=== PATIENT | female | born 1940 | race Caucasian/White ===

== ENCOUNTER 2018-02-09 14:33 | Emergency (ER) | payer MEDICARE, OTHER ==
[~2018-02-09] VITALS: Ht 157.5 cm; Wt 66.0 kg
[~2018-02-09 14:33] MED LIST: ATEN25TA PO; DEXI60CA PO; DONE10TA7 PO; SIMV40TA PO
[2018-02-09 14:44] VITALS: BP 135/63; PULSE 68; RESP 18; TEMP 97.4; O2SAT 95
[2018-02-09] MEDS ORDERED: MEMA1TAB2 PO (15:38)
[2018-02-09] MEDS ORDERED: ACETAMINOPHEN/HYDROcodone 325 MG/5 MG TAB PO ONE (16:00)
--- NOTE | 2018-02-09 16:30 | PD ---
HPI Chief Complaint: Musculoskeletal Complaint Time Seen by Provider: 15:38 Travel History International Travel<30 days: No Contact w/Intl Traveler<30days: No Traveled to known affect area: No History of Present Illness HPI 77-year-old female presents to the emergency room for evaluation of right shoulder pain after mechanical trip and fall just prior to arrival. Patient was in her garage when she slipped on something on the floor and fell to the right. She believes she struck her shoulder against a wall. She states she never actually fell to the floor. She adamantly denies hitting her head or loss of consciousness. She denies any other pain. Patient has not taken anything for her symptoms. Pain is localized to the proximal humerus. Improved when her arm is held down against her abdomen. Worsens with any range of motion. Patient denies paresthesias. PFSH Past Medical History Cardiovascular Problems: Yes High Cholesterol: Yes Diminished Hearing: No GERD: Yes Hypertension: Yes Migraines: Yes ?: Not : 4 Para: 5 Past Surgical History Abdominal Surgery: Yes (CHOLECYSTECTOMY) Cholecystectomy: Yes Oral Surgery: Yes (TONSILECTOMY) Tonsillectomy: Yes Social History Alcohol Use: No Tobacco Use: No Substance Use: No Allergies-Medications (Allergen,Severity, Reaction): Coded Allergies: No Known Allergies (Verified Adverse Reaction, Unknown, 02/09/18) Reported Meds & Prescriptions Reported Meds & Active Scripts Active Hydrocodone-Acetaminophen 5-325 mg Tab 1 Tab PO Q6H PRN Reported Memantine 10 Mg Tab 10 Mg PO BID Donepezil 10 Mg Tab 10 Mg PO DAILY Simvastatin 40 Mg Tab 40 Mg PO HS Review of Systems Except as stated in HPI: all other systems reviewed are Neg Physical Exam Narrative GENERAL: Well-nourished, well-developed female no acute distress. Afebrile. Ambulatory. SKIN: Focused skin assessment warm/dry. No erythema or ecchymosis. HEAD: Normocephalic. EYES: No scleral icterus. No injection or drainage. NECK: Supple, trachea midline. No JVD or lymphadenopathy. CARDIOVASCULAR: Regular rate and rhythm without murmurs, gallops, or rubs. RESPIRATORY: Breath sounds equal bilaterally. No accessory muscle use. MUSCULOSKELETAL: No cyanosis. No obvious edema. Tenderness to palpation over the proximal humerus. 2+ radial pulse. Radial, ulnar, and median nerves intact. Extreme limited range of motion of the right upper extremity secondary to pain. Data Data Last Documented VS Vital Signs Date Time Temp Pulse Resp B/P (MAP) Pulse Ox O2 Delivery O2 Flow Rate FiO2 02/09/18 17:11 14 02/09/18 14:44 97.4 68 135/63 (87) 95 Orders Orders Humerus (Min 2vws) (02/09/18 ) Acetamin-Hydrocod 325-5 Mg ([place] 5-325 (02/09/18 16:00) Shoulder, Limited(2vws) (02/09/18 ) Splint Or Brace Apply/Monitor (02/09/18 18:09) Ed Discharge Order (02/09/18 18:16) MDM Medical Decision Making Medical Screen Exam Complete: Yes Emergency Medical Condition: Yes Medical Record Reviewed: Yes Differential Diagnosis Sprain, strain, contusion, fracture Narrative Course 77-year-old female presents to the emergency room for evaluation of right shoulder pain after trip and fall just prior to arrival. Patient adamantly denies any other injuries. Physical exam reveals no obvious edema. Tenderness to palpation over the proximal humerus. 2+ radial pulse. Radial, ulnar, and median nerves intact. Extreme limited range of motion of the right upper extremity secondary to pain. X-ray of the shoulder shows minimally displaced humeral head fracture. Patient was placed in a sling in the emergency room. She was told to follow-up with a primary care physician or return for worsening symptoms. Discharge with prescription for Lortab. She understands and agrees to plan. Diagnosis Primary Impression: Humeral head fracture Qualified Codes: S42.291A - Other displaced fracture of upper end of right humerus, initial encounter for closed fracture Referrals: Primary Care Physician Additional Instructions: Rest and drink plenty of fluids. Use splint continuously until directed otherwise. Try to maintain range of motion of your elbow and hand and wrist. Take Lortab with food as directed, as needed for pain. Do not drink alcohol or drive while taking this medication Apply ice to the affected area for 20 minutes at a time, as needed for pain and swelling. Follow-up with a primary care physician. Return to the emergency room for worsening symptoms. Med/Other Pt SpecificInfo: Prescription(s) given Scripts Hydrocodone-Acetaminophen (Hydrocodone-Acetaminophen) 5-325 mg Tab 1 TAB PO Q6H Y for PAIN, #12 TAB 0 Refills Prov: MarioCathi L DO 02/09/18 Disposition: 01 DISCHARGE HOME Condition: Stable Ban Lombardo Feb 09, 2018 16:30
[2018-02-09 17:11] VITALS: RESP 14
--- NOTE | 2018-02-09 18:03 | RADRPT ---
EXAM DATE/TIME: 02/09/2018 17:45 [facility] COMPARISON: No previous studies available for comparison. INDICATIONS : Fell, right upper arm pain, limited ROM MEDICAL HISTORY : None. SURGICAL HISTORY : None. ENCOUNTER: Initial ACUITY: 1 day PAIN SCORE: 8/10 LOCATION: Right humerus FINDINGS: Two view examination of the right humerus demonstrates no evidence of fracture or dislocation. Bony mineralization is normal. The soft tissue structures are intact. CONCLUSION: Intact right humerus. Joseph Bloom MD on February 09, 2018 at 18:00 Board Certified Radiologist. This report was verified electronically.
--- NOTE | 2018-02-09 18:04 | RADRPT ---
EXAM DATE/TIME: 02/09/2018 17:45 [facility] COMPARISON: No previous studies available for comparison. INDICATIONS : Fell, right shoulder pain, limited ROM MEDICAL HISTORY : None. SURGICAL HISTORY : None. ENCOUNTER: Initial ACUITY: 1 day PAIN SCORE: 8/10 LOCATION: Right shoulder FINDINGS: There is a minimally displaced fracture through the lateral aspect of the humeral head. No dislocatio n. No other fractures are seen. CONCLUSION: Minimally displaced fracture through the lateral aspect of the humeral head. Cory Cristobal MD on February 09, 2018 at 17:59 Board Certified Radiologist. This report was verified electronically.
[2018-02-09] MEDS ORDERED: HYDR-3516 PO (18:10)
== END 2018-02-09 18:31 | disposition home or self-care (01) ==
LOC: PHED 14:33 → PHEFT 18:31
DX: S42.291A Other displaced fracture of upper end of right humerus, initial encounter for closed fracture (principal); E78.00 Pure hypercholesterolemia, unspecified; K21.9 Gastro-esophageal reflux disease without esophagitis; I10 Essential (primary) hypertension; W01.0XXA Fall on same level from slipping, tripping and stumbling without subsequent striking against object, initial encounter; Z79.899 Other long term (current) drug therapy
CPT/HCPCS: 73030; 73060; 99283